=== PATIENT | female | born 1990 | race Caucasian/White ===

== ENCOUNTER 2020-05-06 09:19 | Emergency (ER) | payer OTHER, SELFPAY ==
[2020-05-06 09:41] VITALS: BP 109/59; PULSE 82; RESP 17; TEMP 36.3; O2SAT 98; BMI 24.0
--- NOTE | 2020-05-06 10:01 | ED.GENADULT ---
HPI - General Adult General Chief complaint: General Medical Stated complaint: lifted box hurt lt side and vomited blood work rel Time Seen by Provider: 05/06/20 10:00 Source: patient Mode of arrival: ambulatory Limitations: no limitations History of Present Illness HPI narrative: 29-year-old female who presents emergency department for evaluation of left lower quadrant abdominal pain and hematemesis that occurred at work after she lifted heavy puzzle overhead put on a rack. 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 She developed immediate pain in her left lower quadrant area. She states that the initial sensation was a popping sensation and since then she has had a constant, cramping sensation which is 4 to 5/10. The patient had associated nausea and vomited twice. She states that she vomited dime-size chunks of blood. Given the hematemesis, she was referred to [facility] for evaluation and she was then referred to the emergency department for evaluation. She states that she had a approximately 1 year prior and is also had an operation for an ovarian cyst in the past. She denied being ill in any way prior to the injury at work. Related Data Allergies Allergy/AdvReac Type Severity Reaction Status Date / Time Penicillins [PENICILLINS] Allergy Mild RASH Verified 05/06/20 09:44 sulfamethoxazole Allergy Mild DIZZINESS Unverified 01/08/20 17:15 [From BACTRIM] trimethoprim [From BACTRIM] Allergy Mild DIZZINESS Unverified 01/08/20 17:15 bee pollen [BEE STINGS] Allergy Unknown HIVES Unverified 01/08/20 17:15 Review of Systems Review of Systems: Yes all other systems are reviewed and are negative Neurologic: Reports Abnormal speech present [facility] Past Medical History [facility] Narrative: Patient has history of asthma. Surgical history of 05/17/2019 and ovarian cyst resection in the past. The patient does smoke cigarettes. She occasionally drinks alcohol. She denies drug use Medical History (Updated 05/06/20 @ 10:13 by Joel Brown MD) No known health problems Social History Social History Advance Directives: No Advance Directives Information Provided: No Physical Exam Vital Signs: Vital Signs: Last Vital Signs Temp 97.3 F 05/06/20 09:41 Pulse 82 05/06/20 09:41 Resp 17 05/06/20 09:41 BP 109/59 L 05/06/20 09:41 Pulse Ox 98 05/06/20 09:41 Body Mass Index 24.0 Const: General: cooperative and healthy appearing Orientation/consciousness: oriented to person and oriented to place Limitations: no limitations HENMT: Head: Yes normal to inspection, Yes normocephalic and Yes atraumatic Ears: external ears normal General nose exam: Normal external nose present Face and sinus: Yes normal facial exam Mouth: Normal oral and palatal mucosa present Throat: Yes posterior oropharynx normal Eyes: Periorbital: periorbital findings normal Eyelids: Yes eyelids normal Conjunctivae: conjunctivae normal Sclerae: sclerae normal Corneas: corneas normal Pupils: Equal, round and reactive pupils present Direct Ophthalmoscopy: normal light reflex Neck: Neck: Yes full ROM, Yes no lymphadenopathy, Yes no meningeal signs, Yes trachea midline and Yes supple Chest: Chest palpation & inspection: normal inspection of the chest and normal palpation of entire chest wall Resp: Effort & Inspection: normal respiratory effort and able to speak in complete sentences Auscultation: clear to auscultation bilaterally Cardio: Rate: regular rate Rhythm: regular rhythm Heart sounds: S1 normal heart sound present, S2 normal heart sound present and no murmurs GI: Inspection: Yes normal to inspection Palpation (GI): Soft to palpation, Tenderness to palpation present (GI) in the LUQ (Moderate), no guarding, not rigid, No hepatosplenomegaly present, no hernias, no masses and Other GI palpation findings present ( scar, nontender, intact) : General: Yes no CVA tenderness Back/Spine/Pelvis: Back: no CVA tenderness Cervical Spine: normal cervical lordosis Thoracic/Lumbar Spine: thoracic and lumbar spine normal to inspection Skin: Lesions: no lesions Rashes: no rashes Wounds: no wounds Neuro: General: oriented to person, oriented to place and no meningeal signs Cranial nerves: Yes Equal, round and reactive pupils present Cognition (Neuro): normal cognition Speech: Abnormal speech present Motor exam (neuro): 5/5 motor strength present throughout Extrem: General: Yes normal to inspection and Yes full ROM Psych: Appearance: well kempt Mental Status: mental status grossly normal Speech and movement: Normal speech and movement present Affect: normal affect Attitude: cooperative Thought process: Normal thought process present Thought content: Normal thought content present Course Course Course Narrative: 29-year-old female presents emergency department for evaluation of sudden onset of left lower quadrant pain after lifting heavy possible pieces over her head at work. Patient initially felt a popping sensation. She then had nausea and vomited 2 times with small amount of hematemesis. The patient's physical examination did reveal left lower quadrant tenderness and no tenderness over her scar. I did not feel any palpable mass or hernia in the area of her tenderness. My impression is that the patient's pain is secondary to a muscle tear however hernia needs to be considered. The patient's nausea and vomiting was most likely triggered by her pain and she probably has a small Sandra-Castro tear causing hematemesis. I did discuss this with her. I do not think that the patient return to work at this time and will need several days in order to treat the muscle pain/muscle tear. She was advised to apply ice for 15 minutes 4 to 6 times a day to the area of pain. She is to take Tylenol and ibuprofen for pain. She will need to follow-up with [facility] on Sunday for re-evaluation and she may require a surgical consult if she has continued to have pain or develops a hernia like mass in this area. Discharge Plan Discharge Clinical Impression: Abdominal pain, Hematemesis Instructions: Inguinal Hernia (ED) Additional Instructions: At this time, you do have tenderness in the left lower quadrant of your abdomen but I do not feel a significant hernia. It is possible that you may have developed a hernia or that you may have just torn the muscles in this area and the torn muscles are the causing your tenderness and pain. Follow the hernia instructions. Please return to the emergency department if you develop increased pain, abdominal distension, nausea, vomiting or are unable to move your bowels. The pain that you developed caused your nausea and vomiting. Sometimes when we vomit, we can cause small tears of our esophagus (food tube) and cause bleeding. This is often minor. Please return to the emergency department if you vomited up more blood. Apply ice for 15 minutes 4 to 6 times a day for the next 1-2 days to help reduce the pain in your lower abdomen Take ibuprofen 200 mg pills, 3 pills every 6 hours as needed for pain. Take Tylenol (acetaminophen) 500 mg pills, 2 pills every 4 to 6 hours as needed for pain. Follow-up with [facility] on 05/10/2019. No work until re-evaluated by [facility]. Please return to the emergency department if your symptoms get worse or if you develop any symptoms that are concerning to you. Stand Alone Forms: Work/School Release
== END 2020-05-06 10:32 | disposition home or self-care (01) ==
PROVIDERS: Emergency Provider Emergency Medicine Emergency Medical Services
DX: K92.0 Hematemesis (principal); R10.32 Left lower quadrant pain
CPT/HCPCS: 99283